=== PATIENT | male | born 1975 | race Hispanic/Latino ===

== ENCOUNTER 2021-04-05 15:38 | Emergency (ER) | payer SELFPAY ==
--- NOTE | 2021-04-05 16:31 | EDM.PDOC ---
ED HPI GENERAL MEDICAL PROBLEM - General Chief Complaint: General Stated Complaint: HEADACHE THROAT PAIN EYE PAIN Time Seen by Provider: 04/05/21 16:20 Source of Information: Reports: Patient, RN Notes Reviewed History Limitations: Reports: Language Barrier (Patient is primarily Greenlandic- speaking, the iPad senior technical architect was used.) - History of Present Illness INITIAL COMMENTS - FREE TEXT/NARRATIVE: Patient is a 45-year-old male who presents to the ER for his [id number] symptoms. Patient is primarily Green[place]ic-speaking, so the iPad senior technical architect was used for the history and exam. Patient states that he has no prior medical issues other than gout. He takes no other medications. He has been having symptoms that include sore throat, fever, body aches and feeling very lethargic for the past day or 2. He does not think he has been around anyone has been sick. He did not get vaccinated for COVID-19. - Related Data Allergies Allergy/AdvReac Type Severity Reaction Status Date / Time No Known Allergies Allergy Verified 04/05/21 16:21 Home Meds: Home Meds . [No Known Home Meds] 04/05/21 [History] Past Medical History Musculoskeletal History: Reports: Gout ED ROS GENERAL - Review of Systems Review Of Systems: Comprehensive ROS is negative, except as noted in HPI. ED EXAM, GENERAL - Physical Exam Exam: See Below Exam Limited By: No Limitations General Appearance: Alert, WD/WN, No Apparent Distress Respiratory/Chest: No Respiratory Distress, Lungs Clear, Normal Breath Sounds, No Accessory Muscle Use, Chest Non-Tender Cardiovascular: Normal Peripheral Pulses, Regular Rate, Rhythm, No Edema Peripheral Pulses: 2+: Radial (L), Radial (R) Extremities: Normal Inspection, Normal Capillary Refill Neurological: Alert, Oriented, Normal Cognition, No Motor/Sensory Deficits Psychiatric: Normal Affect, Normal Mood Skin Exam: Warm, Dry, Intact, Normal Color, No Rash Course - Vital Signs Last Recorded V/S: Last Vital Signs Temp 98.3 F 04/05/21 16:14 Pulse 110 H 04/05/21 16:14 Resp 16 04/05/21 16:14 BP 124/95 H 04/05/21 16:14 Pulse Ox 95 04/05/21 16:14 - Orders/Labs/Meds Labs: Laboratory Tests 04/05/21 04/05/21 04/05/21 Range/Units 16:36 17:05 17:05 WBC 6.54 (4.23-9.07) K/mm3 RBC 5.11 (4.63-6.08) M/mm3 Hgb 15.7 (13.7-17.5) gm/dl Hct 47.6 (40.1-51.0) % MCV 93.2 H (79.0-92.2) fl MCH 30.7 (25.7-32.2) pg MCHC 33.0 (32.2-35.5) g/dl RDW Std Deviation 41.1 (35.1-43.9) fL Plt Count 234 (163-337) K/mm3 MPV 10.6 (9.4-12.3) fl Neut % (Auto) 57.6 (34.0-67.9) % Lymph % (Auto) 27.1 (21.8-53.1) % [place] % (Auto) 11.3 (5.3-12.2) % Eos % (Auto) 3.7 (0.8-7.0) Baso % (Auto) 0.3 (0.1-1.2) % Neut # (Auto) 3.77 (1.78-5.38) K/mm3 Lymph # (Auto) 1.77 (1.32-3.57) K/mm3 [place] # (Auto) 0.74 (0.30-0.82) K/mm3 Eos # (Auto) 0.24 (0.04-0.54) K/mm3 Baso # (Auto) 0.02 (0.01-0.08) K/mm3 Sodium 144 (136-145) mEq/L Potassium 3.6 (3.5-5.1) mEq/L Chloride 106 (98-107) mEq/L Carbon Dioxide 29 (21-32) mEq/L Anion Gap 12.6 (5-15) BUN 19 H (7-18) mg/dL Creatinine 1.2 (0.7-1.3) mg/dL Est Cr Clr Drug Dosing TNP Estimated GFR (MDRD) > 60 (>60) mL/min BUN/Creatinine Ratio 15.8 (14-18) Glucose 133 H (70-99) mg/dL Calcium 9.0 (8.5-10.1) mg/dL Total Bilirubin 0.3 (0.2-1.0) mg/dL AST 40 H (15-37) U/L ALT 100 H (16-63) U/L Alkaline Phosphatase 98 (46-116) U/L C-Reactive Protein 1.0 (<1.0) mg/dL Total Protein 7.6 (6.4-8.2) g/dl Albumin 3.8 (3.4-5.0) g/dl Globulin 3.8 gm/dL Albumin/Globulin Ratio 1.0 (1-2) SARS-CoV-2 RNA (NEMESIO) Negative (NEGATIVE) - Re-Assessments/Exams Free Text/Narrative Re-Assessment/Exam: 04/05/21 16:31 Patient presents to the ER for his [id number] symptoms we will go ahead and get a Covid swab, do a chest x-ray and basic labs for initial evaluation. 04/05/21 18:03 The patient's laboratory evaluation is unremarkable. Patient's initial Covid screen did come back negative, and chest x-ray demonstrates no sign of acute infiltrate. There is some slight limited inspiratory effort noted. I will go reassess the patient, and have him go home isolate away from others for the next few days and retest for COVID-19 in a few days to make sure that he gets a second negative. Departure - Departure Time of Disposition: 18:04 Disposition: Home, Self-Care 01 Condition: Good Clinical Impression: Suspected 2019-nCoV infection - Discharge Information *PRESCRIPTION DRUG MONITORING PROGRAM REVIEWED*: No *COPY OF PRESCRIPTION DRUG MONITORING REPORT IN PATIENT JAYLENE: No Instructions: COVID-19: Quarantine vs. Isolation - [facility] (06/21/2020) Referrals: PCP,None [Primary Care Provider] - Forms: ED Department Discharge, ED Return to Work/School Form Additional Instructions: You were seen in the ER today for ongoing and/or worsening respiratory symptoms. Your chest x-ray showed no signs of pneumonia at this time. Your oxygen levels were great at 96% on room air. Your initial Covid screen was negative at today's visit. However since you have many symptoms of COVID-19 and it is highly suspicious and these tests are not 100% accurate I would recommend that you go home, isolate yourself away from others and try to limit contact with others as much as possible and get retested for COVID-19 in roughly 3 or 4 days. Sometimes when the initial swab comes back negative, it does come back positive a few days later, due to the viral load of the disease. In the meantime you may try to increase your oral fluid intake, and eat multiple small meals throughout the day, to keep yourself healthy. You need to keep yourself nourished in order to fight off this disease. You can try a liquid diet like gatorade/powerade as well to get your electrolytes. You may take 500 mg Tylenol every hours 6 hours for pain/fever relief. Do not exceed 4000 mg Tylenol in a 24-hour time span. However, running a fever is your body's natural response to illness, and it allows the body to develop antibodies to disease, we are recommending trying to limit the use of Tylenol as much as possible to allow your body's natural immune response. Recommend you obtain a pulse oximeter and monitor your oxygen levels at home, you should place the monitor on your finger, and sit in a calm, quiet position for a few minutes and then record the number that is on the screen. If this consistently below 90% on room air without movement, this would be cause for concern to come back to the hospital for further management of your suspected COVID-19 disease. Hoy lo vieron en la javy de emergencias por sntomas respiratorios continuos o que empeoraron. Duval radiografa de trax no mostr signos de neumona en keren momento. Stephanie niveles de oxgeno ngozi excelentes al 96% en el aire ambiente. Duval pantalla Covid inicial fue negativa en la visita de lyssa. Sin embargo, dado que tiene muchos sntomas de COVID-19 y es muy sospechoso y estas pruebas no son 100% precisas, le recomendara que se vaya a casa, se asle de los dems y trate de limitar el contacto con los dems tanto edvin sea posible y vuelva a hacerse la prueba. para COVID-19 en aproximadamente 3 o 4 ragland. A veces, cuando el hisopo inicial da negativo, vuelve a ser positivo unos ragland despus, debido a la carga viral de la enfermedad. Mientras tanto, puede intentar aumentar la ingesta de lquidos por va oral y comer varias comidas pequeas a lo jonathan del da para mantenerse saludable. Necesita mantenerse nutrido para combatir esta enfermedad. Tambin puede probar lorenza dieta lquida edvin gatorade / powerade para obtener stephanie electrolitos. Puede kelin 500 mg de Tylenol cada 6 horas para aliviar el dolor o la fiebre. No exceda los 4000 mg de Tylenol en un lapso de tiempo de 24 horas. Sin embargo, tener fiebre es la respuesta natural de duval cuerpo a la enfermedad, y le permite al cuerpo desarrollar anticuerpos contra la enfermedad, recomendamos tratar de limitar el uso de Tylenol tanto edvin sea posible para permitir la respuesta inmune natural de duval cuerpo. Te recomiendo que obtengas un oxmetro de pulso y monitorees tus niveles de oxgeno en casa, debes colocar el monitor en tu dedo, y sentarte en lorenza posicin tranquila y silenciosa por unos minutos y luego registrar el nmero que est en la pantalla. Si est constantemente por debajo del 90% en el aire de la habitacin sin movimiento, sera motivo de preocupacin para regresar al hospital para un mayor control de duval sospecha de enfermedad COVID-19. Sepsis Event Note (ED) - Evaluation Sepsis Screening Result: No Definite Risk - Focused Exam Vital Signs: Vital Signs Temp Pulse Resp BP Pulse Ox 04/05/21 16:14 98.3 F 110 H 16 124/95 H 95
--- NOTE | 2021-04-05 17:55 | CR ---
Chest: Frontal view of the chest was obtained. Comparison: No prior chest imaging is available. Slightly limited inspiratory effort is seen. No definite acute parenchymal change is seen within either lung. Heart size and mediastinum are within normal limits. Bony structures show nothing acute. Impression: 1. Slightly limited inspiratory effort. 2. Nothing acute is definitely appreciated. Diagnostic code #2
== END 2021-04-05 18:39 | disposition home or self-care (01) ==
LOC: JD.ED 15:38
DX: R50.9 Fever, unspecified (principal); J02.9 Acute pharyngitis, unspecified; Z20.822 Contact with and (suspected) exposure to COVID-19
CPT/HCPCS: 36415; 71045; 71045-26; 80053; 85025; 86140; 99282; 99284-25; U0002